=== PATIENT | male | born 1950 | race Asian ===

== ENCOUNTER 2019-06-25 23:27 | Emergency (ER) | payer MEDICARE, OTHER ==
[~2019-06-25] VITALS: Ht 160 cm; Wt 77.1 kg
[2019-06-25 23:52] VITALS: BP 138/84
[2019-06-25 23:57] LABS: BASOPHILS % (AUTO) 1.4 % (0.0-2.0); EOSINOPHILS % (AUTO) 3.4 % (0.0-3.0); HEMATOCRIT 45.8 % (42.0-52.0); HEMOGLOBIN 16.7 G/DL (14.2-18.0); LYMPHOCYTES % (AUTO) 50.5 % (20.0-45.0); MEAN CORPUSCULAR VOLUME 94 FL (80-99); MONOCYTES % (AUTO) 6.9 % (1.0-10.0); NEUTROPHILS % (AUTO) 37.7 % (45.0-75.0); PLATELET COUNT 205 K/UL (150-450); RED CELL DISTRIBUTION WIDTH 10.9 % (11.6-14.8); WHITE BLOOD COUNT 10.4 K/UL (4.8-10.8)
--- NOTE | 2019-06-25 23:58 | NUR ---
ED Nurse Note: Patient was BIBA [address] due to ETOH. Patient arousable to voice, AAO x2, VSS at this time, skin is dry warm to touch. Blood collected sent down.
[2019-06-26 00:15] LABS: ANION GAP 14 mmol/L (5-15); BLOOD UREA NITROGEN 19 mg/dL (7-18); CARBON DIOXIDE 22 MMOL/L (21-32); CHLORIDE 106 MMOL/L (98-107); POTASSIUM 4.3 MMOL/L (3.5-5.1); SODIUM 142 MMOL/L (136-145)
[2019-06-26 00:20] LABS: ALANINE AMINOTRANSFERASE 90 U/L (12-78); ALBUMIN 4.2 G/DL (3.4-5.0); ALKALINE PHOSPHATASE 56 U/L (46-116); ASPARTATE AMINO TRANSFERASE 90 U/L (15-37); BILIRUBIN,TOTAL 0.5 MG/DL (0.2-1.0)
--- NOTE | 2019-06-26 00:20 | Emergency Room Report ---
History of Present Illness General Chief Complaint: Alcohol Intoxication Source: Patient Present Illness HPI It was reported by the paramedics that the patient was found in the streets appeared to be public intoxicated Police Department were there and gave the patient the option of going to longterm or to the hospital and patient presented to the hospital Here he denies any headache denies any chest pain he reports drinking increasing amount of alcohol Denies any abdominal pain denies any back or flank pain Denies any focal weakness Allergies: Coded Allergies: No Known Allergies (Unverified , 06/25/19) Patient History Past Medical History: see triage record Reviewed Nursing Documentation: PMH: Agreed; PSxH: Agreed Nursing Documentation-PMH Hx Hypertension: Yes Review of Systems All Other Systems: negative except mentioned in HPI Physical Exam Vital Signs Date Time Temp Pulse Resp B/P (MAP) Pulse Ox O2 Delivery O2 Flow Rate FiO2 06/25/19 23:33 97.2 88 16 138/84 (102) 97 Room Air Sp02 EP Interpretation: reviewed, normal General Appearance: other - Slurring his speech, laughing, Head: normocephalic, atraumatic Eyes: bilateral eye PERRL, bilateral eye EOMI ENT: hearing grossly normal, normal pharynx, TMs + canals normal, uvula midline Neck: full range of motion, supple, no meningismus, no bony tend Respiratory: lungs clear, normal breath sounds, no rhonchi, no respiratory distress, no retraction, no accessory muscle use Cardiovascular #1: normal peripheral pulses, regular rate, rhythm, no edema, no gallop, no JVD, no murmur Gastrointestinal: normal bowel sounds, non tender, soft, no mass, no organomegaly, non-distended, no guarding, no hernia, no pulsatile mass, no rebound Genitourinary: no CVA tenderness Musculoskeletal: normal inspection Neurologic: oriented x3, responsive, contact lens blocker and cutter III-XII nml as tested, motor strength/ tone normal, sensory intact Psychiatric: mood/affect normal Skin: no rash Lymphatic: normal inspection, no adenopathy Medical Decision Making Diagnostic Impression: Primary Impression: Acute alcoholic intoxication ER Course Initially multiple differentials and consideration including but not limited to metabolic, neurological, alcohol intoxication Patient rested here for multiple hours blood work does reveal elevated alcohol level Patient further hydrated Family is contacted They have provided transportation for the patient home Patient is ambulatory with steady gait and is stable for close outpatient follow -up Labs Test 06/25/19 23:45 White Blood Count 10.4 K/UL (4.8-10.8) Red Blood Count 4.90 M/UL (4.70-6.10) Hemoglobin 16.7 G/DL (14.2-18.0) Hematocrit 45.8 % (42.0-52.0) Mean Corpuscular Volume 94 FL (80-99) Mean Corpuscular Hemoglobin 34.0 PG (27.0-31.0) Mean Corpuscular Hemoglobin Concent 36.4 G/DL (32.0-36.0) Red Cell Distribution Width 10.9 % (11.6-14.8) Platelet Count 205 K/UL (150-450) Mean Platelet Volume 9.6 FL (6.5-10.1) Neutrophils (%) (Auto) 37.7 % (45.0-75.0) Lymphocytes (%) (Auto) 50.5 % (20.0-45.0) Monocytes (%) (Auto) 6.9 % (1.0-10.0) Eosinophils (%) (Auto) 3.4 % (0.0-3.0) Basophils (%) (Auto) 1.4 % (0.0-2.0) Sodium Level 142 MMOL/L (136-145) Potassium Level 4.3 MMOL/L (3.5-5.1) Chloride Level 106 MMOL/L (98-107) Carbon Dioxide Level 22 MMOL/L (21-32) Anion Gap 14 mmol/L (5-15) Blood Urea Nitrogen 19 mg/dL (7-18) Creatinine 1.0 MG/DL (0.55-1.30) Estimat Glomerular Filtration Rate > 60 mL/min (>60) Glucose Level 140 MG/DL (74-106) Calcium Level 9.0 MG/DL (8.5-10.1) Total Bilirubin 0.5 MG/DL (0.2-1.0) Aspartate Amino Transf (AST/SGOT) 90 U/L (15-37) Alanine Aminotransferase (ALT/SGPT) 90 U/L (12-78) Alkaline Phosphatase 56 U/L (46-116) Total Protein 8.4 G/DL (6.4-8.2) Albumin 4.2 G/DL (3.4-5.0) Globulin 4.2 g/dL Albumin/Globulin Ratio 1.0 (1.0-2.7) Serum Alcohol 263 mg/dL Rhythm Strip Diag. Results EP Interpretation: yes Rate: 77 Rhythm: NSR, no PVC's, no ectopy Last Vital Signs Date Time Temp Pulse Resp B/P (MAP) Pulse Ox O2 Delivery O2 Flow Rate FiO2 06/25/19 23:52 97.2 16 138/84 97 Room Air 06/25/19 23:52 88 Status: improved Disposition: HOME, SELF-CARE Condition: Improved Additional Instructions: Patient is provided with the discharge instructions notified to follow up with primary doctor in the next 2-3 days otherwise return to the er with any worsening symptoms. Please note that this report is being documented using [employer] technology. This can lead to erroneous entry secondary to incorrect interpretation by the dictating instrument. Ender Tang DO Jun 26, 2019 00:20
[2019-06-26 02:40] VITALS: BP 138/84
--- NOTE | 2019-06-26 02:41 | NUR ---
ER DISCHARGE NOTE: Patient is cleared to be discharged per ERMD, pt is aox4, on room air, with stable vital signs. pt was given dc and prescription instructions, pt was able to verbalize understanding, pt id band and iv site removed without complications. pt is able to ambulate with steady gait. pt took all belongings.
--- NOTE | 2019-06-28 11:42 | Cardiology Report ---
APPROVED REPORT EKG Measurement Heart [id number] Normal sinus rhythm Normal ECG
== END 2019-06-26 02:41 | disposition home or self-care (01) ==
LOC: EDBD 23:27 → EMR 23:39
DX: F10.129 Alcohol abuse with intoxication, unspecified (principal); Y90.8 Blood alcohol level of 240 mg/100 ml or more; I10 Essential (primary) hypertension
CPT/HCPCS: 36415; 80053; 85025; 93005; 96360; 99284; G0480; 80329